=== PATIENT | female | born 1960 | race Caucasian/White ===

== ENCOUNTER 2018-04-28 09:31 | Emergency (ER) | payer OTHER ==
[2018-04-28 09:48] VITALS: BP 116/64
[2018-04-28] MEDS ORDERED: Fluorescein Sod TOPICAL 0.6* 0.6 MG TEST OPHTHALMIC ONE ×2 (09:53→10:31)
[2018-04-28] MEDS ORDERED: BSS OPTH.SOL* BTL ONE (09:53)
[2018-04-28] MEDS ORDERED: Tetracaine 0.5% OPTH.SOL 4 ML* 1 DROP BTL ONE (09:53)
--- NOTE | 2018-04-28 10:44 | UC ---
Eye Complaint HPI - HPI Summary HPI Summary: Patient presents complaining of a corneal ulcer to her right eye. She states it began in the middle of last evening. It's getting progressively worse. She states that she can see the white spot on the lower edge of her right eye. She states that she has a history of the same. She denies any discharge from her eyes or visual change. She is arty stop using her contact lens. She states that she normally gets treated with antibiotic eyedrops. - History of Current Complaint Chief Complaint: UCEye Stated Complaint: EYE COMPLAINT Time Seen by Provider: 04/28/18 10:31 Hx Obtained From: Patient Hx Last Menstrual Period: 2007 Onset/Duration: Gradual Onset Timing: Constant Pain Intensity: 7 Aggravating Factor(s): Nothing Alleviating Factor(s): Nothing Associated Signs And Symptoms: Negative: Photophobia, Drainage (Clear), Drainage (Purulent), Vision Impairment Bilateral - Risk Factors Penetrating Injury Risk Factor: Negative Globe Rupture Risk Factors: Negative Acute Glaucoma Risk Factors: Negative - Allergies/Home Medications Allergies/Adverse Reactions: Allergies Allergy/AdvReac Type Severity Reaction Status Date / Time seasonal Allergy Sneezing Uncoded 04/28/18 09:42 Home Medications: Home Medications Multivitamin [Multivitamins] 1 cap PO DAILY 04/28/18 [History Confirmed 04/28/18 ] PMH/Surg Hx/FS Hx/Imm Hx - Additional Past Medical History Additional PMH: dry eye - Surgical History Surgical History: Yes Surgery Procedure, Year, and Place: c section, ablation, laser endometriosis - Family History Known Family History: Positive: None - Social History Occupation: Employed Full-time Lives: With Family Alcohol Use: Rare Substance Use Type: None Smoking Status (MU): Former Smoker When Did the Patient Quit Smoking/Using Tobacco: teenager - Immunization History Vaccination Up to Date: Yes Review of Systems Constitutional: Negative Skin: Negative Eyes: Eye Redness - R ENT: Negative Respiratory: Negative Cardiovascular: Negative Gastrointestinal: Negative Genitourinary: Negative Motor: Negative Neurovascular: Negative Musculoskeletal: Negative Neurological: Negative Psychological: Negative Is Patient Immunocompromised?: No All Other Systems Reviewed And Are Negative: Yes Physical Exam Triage Information Reviewed: Yes Appearance: Well-Appearing Vital Signs: Initial Vital Signs Temp 99.1 F 04/28/18 09:44 Pulse 83 04/28/18 09:44 Resp 14 04/28/18 09:44 BP 116/64 04/28/18 09:44 Pulse Ox 99 04/28/18 09:44 Vital Signs Reviewed: Yes Eyes: Positive: Other: - Visual acuity OD 20/25, both eyes 20/20, OS 20/20. No periorbital edema or erythema. No pre-or postauricular adenopathy. Conjunctiva on the right is mildly injected. Approximate 1-2 mm area of opacity is noted at 7:00 on the right cornea. Pupils are equal round reactive to light, extraocular movements are intact, anterior chambers are clear. Upper and lower lids everted no foreign bodies. Stain in the right eye again reaffirms the opacity previously documented. No perforations and no dendrites appreciated. ENT: Positive: Pharynx normal, TMs normal. Negative: Nasal congestion, Nasal drainage Neck: Positive: Supple, Nontender, No Lymphadenopathy Respiratory: Positive: Lungs clear, Normal breath sounds Cardiovascular: Positive: RRR, No Murmur Abdomen Description: Positive: Nontender, No Organomegaly, Soft Bowel Sounds: Positive: Present Musculoskeletal: Positive: ROM Intact Neurological: Positive: Alert Psychological: Positive: Age Appropriate Behavior Skin Exam: Normal Eye Complaint Course/Dx - Course Course Of Treatment: Patient's eye exam is consistent with corneal ulcer. She has already discontinue contact use but again the need to avoid all contact use was stressed during this visit and patient agrees. A consult was placed to her ophthalmology practice and I spoke to Dr. Doran request I treat this patient with Vigamox eyedrops every 2 hours while awake. We'll contact her Monday morning as in 2 days for follow-up. If she does not hear from them by 10 AM she is to call them. She's been instructed to call them sooner for any changes , worsening or concerns. - Differential Dx/Diagnosis Provider Diagnoses: Corneal ulcer OD Discharge - Sign-Out/Discharge Documenting (check all that apply): Patient Departure - Discharge Plan Condition: Stable Disposition: HOME Prescriptions: Moxifloxacin 0.5% OPHTH(NF) [Vigamox 0.5% OPHTH(NF)] 1 drop RIGHT EYE Q2HR 10 Days #1 [email or web address] Patient Education Materials: Corneal Ulcer (ED) Referrals: Amira Watson MD [Primary Care Provider] - If Needed Shira Ramon MD [Medical Doctor] - 2 Days Additional Instructions: THE OFFICE OF DR DORAN/FROY WILL CALL YOU MONDAY AM FOR FOLLOW UP(2 DAYS). IF YOU DO NOT HEAR FROM THEM BY 10AM, YOU SHOULD CALL THEM. CALL THEM IMMEDIATELY FOR ANY CHANGES OF WORSEN - Billing Disposition and Condition Condition: STABLE Disposition: Home
== END 2018-04-28 11:15 | disposition home or self-care (01) ==
LOC: UCCORT 09:31
DX: H16.001 Unspecified corneal ulcer, right eye (principal); Z87.891 Personal history of nicotine dependence
CPT/HCPCS: 99202; A9270-GY; G0463

== ENCOUNTER 2018-10-12 05:32 | Day surgery (SDC) | payer OTHER ==
--- NOTE | 2018-10-01 19:41 | HP ---
CC: Dr. Rikki Ryan; Dr. Amira Watson * PREOPERATIVE HISTORY AND PHYSICAL: DATE OF ADMISSION: 10/12/18 This patient is scheduled for same-day surgery admission by on 10/12/18. DATE OF PREOPERATIVE HISTORY AND PHYSICAL EXAM: 10/01/18 ATTENDING SURGEON: Dr. Hannah Lee * (dictated by Arcadio Munoz NP). 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 HISTORY OF PRESENT ILLNESS: The patient is a healthy 57-year-old female who presented to with multi-nodular goiter and a recent fine needle aspiration biopsy of the left thyroid nodule that was [place] IV. The patient states that she has known about her thyroid nodule since the when she was around 17 or 18. She has had symptoms of chocking and was placed on Synthroid as suppressive therapy for about 30 years until about 5 years ago. She was seen by a physician who told her Synthroid was no longer needed. Around this time, she began to having regular thyroid ultrasounds and has also had 2 thyroid biopsies. She has also been hospitalized for thyroid storm about 3 years ago. Currently, she denies any symptoms of dysphagia or voice changes, and she has never been exposed to radiation and she has never had neck surgery. She has no family history of endocrine disorders. examined the patient and reviewed thyroid ultrasound imaging and as well as the recent pathology; the right nodule FNA was benign [place] II and the left nodule FNA was follicular neoplasm [place] IV. therefore has recommended left thyroid lobectomy and reviewed the findings with the patient and has described the nature of the surgical procedure, the rational for the procedure, the relevant risks, benefits and alteratives. Today, I reviewed the expected postoperative care and recovery, and the patient has had a chance to ask questions and stated that she understands the information and is satisfied with the answers given to her questions. She will sign surgical consent on the day of surgery. PAST MEDICAL HISTORY: Thyroid disease as described in history of present illness; mild gastroesophageal reflux disease and endometriosis diagnosed in 1993. PAST SURGICAL HISTORY: section. MEDICATIONS: Restasis 0.05% 1 drop in each eye b.i.d. She takes the following supplements; biotin, turmeric, multivitamin, vitamin C, fish oil and Metamucil. She also recently started using Flonase one spray in each nostril as prescribed by Dr. Burton for sinus inflammation. ALLERGIES: No known drug allergies. FAMILY HISTORY: Father is alive at age 81 with COPD and multiple myeloma. Mother is alive and well. No known anesthesia complications, bleeding tendencies or clotting disorders. 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 She has never been a smoker and rarely drinks alcohol and denies the use of other substances. REVIEW OF SYSTEMS: Constitutional: No fevers, chills, excessive fatigue or weight loss. Endocrine: No diabetes, thyroid disease as described in history of present illness. Hematologic: No easy bruising or bleeding. No blood transfusions. Respiratory: No dyspnea on exertion. No chronic cough. Cardiovascular: No anginal chest pain, palpitations, or chest pressure. Gastrointestinal: No nausea, vomiting, diarrhea, GI bleeding or constipation. No change in bowel habits. No recent heart burn. Genitourinary: No dysuria. Musculoskeletal: No back or joint pain. Integumentary: No chronic rashes or skin changes. Neurologic: No headache or blurred vision. General: No history of deep vein thrombosis or pulmonary embolism. No previous anesthesia complications. PHYSICAL EXAMINATION GENERAL SURVEY: The patient is a 57-year-old female, well developed, well nourished in no acute distress. VITAL SIGNS: Height 65.5 inches, weight 149 pounds, body mass index 24.4, blood pressure 120/82, pulse 80 and regular, respiratory rate 16, temperature 98.8. HEENT: Benign. NECK: Supple. No cervical lymphadenopathy. There is mild thyromegaly, soft to palpation. LUNGS: Breath sounds bilaterally clear and equal. HEART: Regular rate and rhythm. No murmurs or rubs. ABDOMEN: Active bowel sounds, soft, nondistended, nontender throughout. No obvious masses or organomegaly. PELVIC AND RECTAL: Deferred. EXTREMITIES: Warm without edema or skin ulceration. NEUROLOGIC: Alert and oriented x3, steady gait. BACK: No CVA tenderness. SKIN: Warm, dry, intact. IMPRESSION: Nontoxic multinodular goiter and follicular neoplasm on fine needle aspiration biopsy of left thyroid nodule. PLAN: Same-day surgery admission to 's service on 10/12/18, for left thyroid lobectomy. ARCADIO MUNOZ, DIRECTOR OF [employer] [id number]/[facility] #: [id number] [facility]
[~2018-10-12 05:32] MED LIST: Buffered Lidocaine 0.9% SYRIN* 5 ML/SYR SYRINGE INTRADERM ONE
[2018-10-12] MEDS ORDERED: Lactated Ringers 1000 ML Bag* 1,000 ML IV SCH (06:00)
[2018-10-12] MEDS ORDERED: Acetaminophen TAB* 325 MG PO ONE (06:00)
[2018-10-12] MEDS ORDERED: Buffered Lidocaine 1% SYRIN* 1 ML/SYRINGE ONE (06:12)
[2018-10-12] MEDS ORDERED: Acetaminophen TAB* 325 MG ONE (06:12)
[2018-10-12] MEDS ORDERED: ceFAZolin 2 GM PREMIX in ORs 2 GM/50 ML BAG IVPB ONE (06:12)
[2018-10-12] MEDS ORDERED: Bupivacaine 0.25% SDV PF* 10 ML VIAL INJ ONE (06:49)
[2018-10-12] MEDS ORDERED: Lidocaine 0.5%* 50 ML SDV ONE (06:49)
[2018-10-12] MEDS ORDERED: Midazolam* 1 MG/ML 2 ML VIAL (2 MG) ONE (07:15)
[2018-10-12] MEDS ORDERED: fentaNYL* 50 MCG/ML 2 ML VIAL (100 MCG VIAL) ONE ×3 (07:15→11:35)
[2018-10-12] MEDS ORDERED: Lidocaine 1% INJ* 10 MG/ML 30 ML SDV ONE (07:21)
[2018-10-12] MEDS ORDERED: Ondansetron INJ* 2 MG/ML VIAL ONE (07:40)
[2018-10-12] MEDS ORDERED: Lidocaine 2% PF * 5 ML VIAL ONE (07:40)
[2018-10-12] MEDS ORDERED: Propofol* 10 MG/ML 20 ML BTL ONE (07:40)
[2018-10-12] MEDS ORDERED: Famotidine IV* 10 MG/ML 2 ML (20 mg) ONE (07:40)
[2018-10-12] MEDS ORDERED: Succinylcholine* 20 MG/ML 10 ML VIAL ONE (07:40)
[2018-10-12] MEDS ORDERED: Dexamethasone IV* 4 MG/ML 1 ML (4 MG) ONE (07:40)
[2018-10-12] MEDS ORDERED: HYDROcodone/ACETAMIN 5-325 MG* 1 TAB PO PRN ×2 (09:06)
[2018-10-12] MEDS ORDERED: fentaNYL* 50 MCG/ML 2 ML VIAL (100 MCG VIAL) IV PRN (09:06)
[2018-10-12] MEDS ORDERED: PROCHLORPERAZINE INJ 5 MG/ML 2 ML VIAL IV PRN (09:06)
[2018-10-12] MEDS ORDERED: Naloxone* 0.4 MG/ML 1 ML VIAL IV PRN (09:06)
[2018-10-12] MEDS ORDERED: DiMENhydriNATE IV* 50 MG/ML VIAL IV PUSH PRN (09:06)
[2018-10-12] MEDS ORDERED: Ondansetron INJ* 2 MG/ML VIAL IV PRN (09:06)
[2018-10-12] MEDS ORDERED: Acetaminophen TAB* 325 MG PO PRN (09:06)
--- NOTE | 2018-10-12 15:26 | OP ---
OPERATIVE REPORT: DATE OF OPERATION: 10/12/18 DATE OF : 58 SERVICE: General Surgery. ATTENDING SURGEON: Hannah Lee MD DIGITAL CAMERA TECHNICIAN: Dr. Loly Dockery. ANESTHESIOLOGIST: Dr. Long. PRE-OP DIAGNOSIS: Left thyroid nodule, follicular neoplasm. POST-OP DIAGNOSIS: Left thyroid nodule, follicular neoplasm. OPERATIVE PROCEDURE: Left thyroid lobectomy. SPECIMEN: Left thyroid lobe. ESTIMATED BLOOD LOSS: 10 cc. INDICATIONS FOR SURGERY: Ms. Silva is a very pleasant 57-year-old female with a history of multinodular goiter. She has had repeated FNA biopsies performed and on her most recent FNA the dominant left thyroid nodule returned as [place] IV or follicular neoplasm. Given this reason, she decided that she did not wish to undergo repeated surveillance given the estimated risk for malignancy of around 15% to 35%. She therefore wished to undergo a left thyroid diagnostic lobectomy. She understood the risks, benefits, and alternatives of the procedure and she wished to proceed. DESCRIPTION OF PROCEDURE: The patient was brought back to the operating room and placed on the operating table in the supine position. Venodyne boots were placed in the bilateral lower extremities for DVT prophylaxis. No antibiotics were administered. The patient underwent general anesthesia. The electrodes for the nerve monitor were attached. Prior to beginning the operation, approximately 20 cc of local anesthesia consisting of a mix of 1% lidocaine and 0.25% Marcaine was administered to the neck. The neck was prepped and prepped in the normal sterile fashion and prior to beginning the procedure, a time-out was performed, verifying the patient's name, MR number, and the procedure to be performed, as well as laterality which was the left side. A transverse incision was made approximately 2 cm above the sternal notch. The skin was divided down to the subcutaneous tissue and through the platysma. Next, the inferior and superior subplatysmal flaps were developed. After this was performed, a retractor was placed in the neck and the median raphe was identified and it was divided down to the isthmus of the thyroid. The strap muscles were then bluntly pushed to side in either direction and the isthmus was divided off of the trachea beginning superiorly. After a tunnel was made underneath the thyroid, the inferior portion of the isthmus was also pulled up and tunnel was made inferiorly after taking the oziel veins. The isthmus then was divided off of the trachea using a Ligasure. Next, the area over the medial attachments from the trachea to the thyroid were divided using LigaSure and Metzenbaum scissors. The space of Reeve was developed and once this was done , the space lateral to the thyroid was developed. The middle thyroid vein was identified and divided with LigaSure and once this was done, the superior pole vessels then were identified and divided using combination of LigaSure and 2-0 silk ties. After the superior pole was divided, the thyroid was then pulled off and out of the neck. There were several thyroid nodules identified, one around the isthmus and another large one of the left thyroid lobe. The large left thyroid lobe extended posteriorly towards the tubercle. The left recurrent laryngeal nerve was identified. The left parathyroid was identified and preserved. The course of the left recurrent laryngeal nerve was traced out towards its insertion point at the cricothyroid muscle and then it was noted to be very close and a little bit more anterior on the tubercle and with very care , it was dissected off and pushed down inferiorly. Once this was done, the thyroid lobe was then divided off of the remaining attachments of the trachea using LigaSure all the while keeping the recurrent laryngeal nerve in site and away. Once the thyroid lobe was freed, it was removed from the table as specimen. Next, attention was turned towards examining the left neck. After Valsalva, hemostasis was obtained and the nerve had a weakened signal at the end of the case, but after several minutes of observation, the signal did return. Tisseel was placed into the left neck cavity. Once hemostasis was obtained and confirmed, the strap muscles were closed using interrupted 4-0 Vicryl sutures. The platysma was closed using interrupted 4-0 Vicryl sutures and the skin was closed using a running 5-0 Prolene. Next, a sterile dressing was applied. The patient's anesthesia was reversed. She was taken to PACU in stable condition. At the end of the case, all counts were correct. [id number]/[facility] #: [id number] [facility]
[2018-10-12 15:56] VITALS: BP 131/79
== END 2018-10-12 16:05 | disposition home or self-care (01) ==
LOC: OR 05:32
PROVIDERS: ATTEND Surgery
DX: D34 Benign neoplasm of thyroid gland (principal); K21.9 Gastro-esophageal reflux disease without esophagitis
CPT/HCPCS: 88307; A9270-GY; C1776; J0330; J0690; J1100; J2250; J2405; J2704; J3010; J3490